=== PATIENT | male | born 2005 | race Caucasian/White ===

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

== ENCOUNTER 2024-10-15 00:25 | Day surgery (SDC) | payer BC, SELFPAY ==
--- NOTE | 2024-10-11 15:51 | PC.NURSE ---
Report to the Outpatient Waiting Room, entrance under the green pavilion located off [facility], at time _1200_ on date _[id number]_. Planned Procedure Time: _2pm_.? Time changes happen often and if your time is changed the preop area will call you the afternoon before. - You and your visitor will be asked to self-screen and do not enter if you have any COVID symptoms. Please call surgeon if you need to reschedule. - A mask is optional within the hospital at this time. Patients may have clear liquids (water, carbonated beverages, clear teas, apple juice) until 3 hours prior to surgery with a maximum of 20 ounces. - No food from midnight until time of surgery and no smoking. This includes no chewing gum, candy or mints. Take only the following medications with a SIP of water on the morning of surgery: ___Antibiotic DO NOT STOP ANY OF YOUR OTHER PRESCRIPTION MEDICATIONS PRIOR TO SURGERY EXCEPT THE FOLLOWING Medications to discontinue per physician None Date to take last dose Please no make-up, nail greek, hairspray, perfume, deodorant, or body powder the day of surgery.? No jewelry (including any body piercings) or valuables the day of surgery, leave them at home.? Please take a shower or bath the night before, or the morning of, surgery with an antibacterial soap.? Wear comfortable, loose fitting clothing.? - Jewelry must be removed prior to entering the operating room.? Rings and piercings that are not removed may be cut off. - The hospital will not accept responsibility for valuables.? - Please leave all valuables, including medications, at home the day of surgery. If you are going home after surgery, a licensed motor driver must drive you home.? - NO public transportation without another adult if you receive anesthesia. - We recommend that an adult stay with you for 24 hours following discharge. - We also recommend that you do not drive, make important decision, drink alcoholic beverages, or take any drugs that were not prescribed by your health care provider for at least 24 hours after your discharge time. Follow any additional instructions given to you from your surgeon. Telephone instructions given to __Carter___and asked if any additional questions and then verbalized understanding. Patient advised to call surgeon office or pre surgery nurse liaison [phone] if any additional questions.
[2024-10-11 15:53] VITALS: BMI 29.0
[2024-10-15] VITALS (9 sets, daily range): BP systolic 90–127; BP diastolic 38–73; PULSE 52–68; RESP 13–16; TEMP 36.2; O2SAT 99–100
--- NOTE | 2024-10-15 12:00 | P.PNAN_ITS ---
Anes - Initial Pre Proc Eval Procedure: Operation Date: 10/15/24 14:00 Proposed Procedures p Incision and Drainage Pilonidal Cyst - Giorgi Augustine MD Date/Time: 10/15/24 12:00 Surgeon: Giorgi Augustine MD Pre Op Diagnosis: pilonidal cyst Patient Data Age: 18 Gender: M Height: 1.85 m Weight: 100 kg Allergies Allergy/AdvReac Type Severity Reaction Status Date / Time No Known Allergies Allergy Verified 10/11/24 15:52 Patient hx anesthesia problems: none Family hx anesthesia problems: none Results Review: All pre-operative results and documents have been reviewed as part of the pre- operative evaluation. PMFSH Family History Family History Other Depression Social History Social History Smoking status: Never smoker Alcohol intake: current Substance use: never Current Housing: Decline to Answer Concerned About Future Housing: Decline to Answer Difficulty Paying Gas/Electric Bills: Decline to Answer Difficulty Paying for Meds: Decline to Answer Currently Unemployed: Decline to Answer Education: Decline to Answer Difficulty w/ Childcare or Family Care: Decline to Answer Anes - Eval Final PreProcedure Day of Procedure 10/15/24 12:00 Patient weight: overweight Heart: regular rate and rhythm Lungs: clear to auscultation Airway: Mallampati scale class II Neurological: alert and oriented Last oral intake: >/= 8 hours ASA classification: II Emergent: no Anesthetic plan: proceed Anesthesia type and monitoring: general ETT and standard monitoring Results Review: All pre-operative results and documents have been reviewed as part of the pre- operative evaluation. Informed Consent: The patient's anesthetic plan and its attendant risks and benefits were discussed with the patient/family/POA. Questions were solicited and answers provided to the satisfaction of the patient/family/POA.
--- NOTE | 2024-10-15 12:28 | WPDHPUPDATE1 ---
History and Physical Update Update Date/Time: 10/15/24 12:28 History and Physical has been reviewed, including an updated exam of the patient. There are NO changes in the patient's condition. Risks, benefits, and alternatives have been discussed and questions answered. Patient agrees to proceed with procedure.
[2024-10-15] MEDS: LACTATED RINGERS 1,000 ML 30 ML IV CONT ×2 (12:34→14:09)
[2024-10-15] MEDS: SCOPOLAMINE 1 MG PATCH 1 PATCH TRANSDERM (12:34)
[2024-10-15] MEDS: ceFAZolin 2 GM/D5W 50 ML 2 GM/50 ML BAG IVPB (13:03)
[2024-10-15] MEDS: BUPIVACAINE/EPINEPHRINE 0.5% 50 ML VIAL 20 ML INFILTRATE (13:32)
--- NOTE | 2024-10-15 14:11 | P.OP_ITS ---
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 It swells, drains, then heals only to repeat this process time and again. He was seen in the office and found to have a pilonidal cyst. The most recent drainage site was in the left side slightly above the gluteal crease but there were clefts lower and in the midline below the coccyx. He is taken to surgery now for incision and drainage of this complex pilonidal cyst. Findings The existing opening tract both cephalad but mostly caudad to the midline. It did not communicate with the deepest of the intergluteal cleft. On opening tract there was large amount of chronic inflammatory tissue and hair present. A well-defined tract was noted. The predominant portion of the recent infection was near the upper aspect of the pilonidal cyst. Once opened the dimensions of the wound were 7 x 2.7 x 1.8 cm. Description of Procedure Patient was taken to surgery and induced into general anesthesia. He was then turned and placed in prone position. The area in the gluteal crease and sacrum was then shaved with clippers. Loose hair fibers were removed. The buttocks were taped apart. Prep and drape was carried out. Initially I probed the fluctuant opening on the upper left. Purulent fluid was in this. I then used a probe and found that it tracked more cephalad and to the patient's right about another 2 cm. It tracked much further caudad and towards the midline. I infiltrated local into the skin and all around the anticipated area of the pilonidal cyst. I then opened the more cephalad extension down to the wound tract. Similarly, I opened the wound tracked caudally ending in the midline. Surprisingly, the cleft between the buttocks did not communicate with the pilonidal sinus tract. There was considerable hair and chronic granulation and inflammatory tissue in the pilonidal cyst. Some of this was wiped away. Some was curetted away and some had to be debrided. Cautery was used for hemostasis, there was very little bleeding. Once the pilonidal cyst was opened adequately that it would drain well, we placed Xeroform gauze in the base of the wound. Fluffs were placed over the Xeroform and then over the wound. Bulky fluffs and couple of ABDs were placed over the wound. The dressing was held in place with Medipore tape. The patient was then returned to a supine position. He was awakened and extubated. He was transferred to recovery in good condition. Estimated Blood Loss -5 Drains No Packing Yes (Xeroform gauze) Pathology None sent Complications None Condition Stable Disposition PACU [facility] Billing Surgery - Charge Forward: Surgery Billing (Incision and drainage complex pilonidal cyst)
== END 2024-10-15 15:24 | disposition home or self-care (01) ==
PROVIDERS: PCP Family Medicine; Visit Provider Surgery
PROC: (CPT 10081; principal; 2024-10-15 14:00)
DX: L05.91 Pilonidal cyst without abscess (principal); G89.18 Other acute postprocedural pain
CPT/HCPCS: 10081; A9270; J0690; J1100; J2250; J2405; J2704; J3010; J7120; Q9968

== ENCOUNTER 2025-06-13 10:59 | Day surgery (SDC) | payer BC, SELFPAY ==
[2025-06-13] VITALS (7 sets, daily range): BP systolic 105–141; BP diastolic 37–83; PULSE 54–70; RESP 12–16; TEMP 36.3–36.5; O2SAT 99–100; BMI 25.2
--- OUTSIDE RECORDS SUMMARY | 2025-06-13 11:36 | XMS_ITS | Clinical Summary ---
Author Organization [facility] [employer] Address [address] [place] [address] Care Team Providers Care Apartment Leasing Agent Name Role Phone Madeline Nolan Primary Care Provider [phone] Source Comments [facility],non-owned Affiliates and Associated Physician Practices is amultiple site organization consisting of ambulatory clinics and hospital sitesin [place], [place], [place] and [place]. This disclosure is being madepursuant to the Care Everywhere program and may not contain all information available regarding this patient. Last updated 18.[facility] Social History Tobacco Use Types Packs/Day Years Used Date Smoking Tobacco: Never Assessed Sex and Gender Information Value Date Recorded Sex Assigned at Not on file Legal Sex Male 1:02 PM CDT Gender Identity Not on file Sexual Orientation Not on file Plan of Treatment Health Maintenance Due Date Last Done Comments HIV SCREENING 2019 HPV VACCINE (1 - Male 3-dose series) 2019 MENINGOCOCCAL (Group B) VACC INE SHARED DECISION-MAKING (1 of 2 - Standard) 2020 HEPATITIS C SCREENING 10/23/2022 DTAP/TDAP/TD VACCINES (1 - Tdap) 2023 HEPATITIS B VACCINE (1 of 3 - 19+ 3-dose series) 2023 DEPRESSION SCREENING 10/10/2024 COVID-19 VACCINE (1 - 2023-2 5 season) 2025 INFLUENZA VACCINE (#1) 2025 ZOSTER VACCINE (1 of 2) 2054 HIB VACCINE Aged Out No longer eligi ble based on patient's age to complete this topic MENINGOCOCCAL GROUPS A/C/Y/W VACCINE Aged Out No longer eligible b ased on patient's age to complete this topic PNEUMOCOCCAL VACCINE Aged Out No long er eligible based on patient's age to complete this topic Care Teams Apartment Leasing Agent Relationship Specialty Start Date End Date Madeline Nolan DO PCP - General Family Medicine 11/28/13
--- OUTSIDE RECORDS SUMMARY | 2025-06-13 11:36 | XMS_ITS | Clinical Summary ---
Author Organization [facility] Address [address] [place] [address] Phone Care Team Providers Care Machine Setter And Repairer Name Role Phone Unavailable Primary Care Provider Unavailabl e Social History Tobacco Use Types Packs/Day Years Used Date Smoking Tobacco: Never Assessed Sex and Gender Information Value Date Recorded Sex Assigned at Not on file Legal Sex Male 8:54 AM CDT Gender Identity Not on file Sexual Orientation Not on file Plan of Treatment Not on file
--- OUTSIDE RECORDS SUMMARY | 2025-06-13 11:36 | XMS_ITS | Encounter Summary ---
Author Organization [facility] Address [address] [place] [address] Phone Care Team Providers Care Calculating Machine Operator Name Role Phone Unavailable Primary Care Provider Unavailabl e Encounter Details Date Type Department Care Team (Late st Contact Info) Description 02/21/2025 Lab Requisition [facility] [address] [place] [address] Megan Goodwin, WEB DESIGN INSTRUCTOR, BOX SEALING INSPECTOR [address] [place] [address] Social History Tobacco Use Types Packs/Day Years Used Date Smoking Tobacco: Never Assessed Sex and Gender Information Value Date Recorded Sex Assigned at Not on file Legal Sex Male 8:54 AM CDT Gender Identity Not on file Sexual Orientation Not on file documented as of this encounter Plan of Treatment Not on file documented as of this encounter Procedures Procedure Name Priority Date/Time Associated Diagnosis Comments QUANTIFERON-TB GOLD PLUS Routine 02/21/2025 8:53 AM CDT documented in this encounter Results * QUANTIFERON-TB GOLD PLUS (02/21/2025 8:53 AM CDT) NIL CONTROL 0.01 <8.01 IU/mL 02/24/2025 1:55 PM CDT [facility] TB ANTIGEN 1 0.02 <0.35 IU/mL 02/24/2025 1:55 PM CDT [facility] TB ANTIGEN 2 0.04 <0.35 IU/mL 02/24/2025 1:55 PM CDT [facility] MITOGEN CONTROL 9.99 >0.49 IU/mL 02/25/20 1:55 PM CDT [facility] INTEPRETATION TB NEGATIVE NEGATIVE, NEGATIVE (TB antigen response less than 25% of internal negative control value) 02/24/2025 1:55 PM CDT [facility] Comment:No immune response t o Mycobacterium tuberculosis antigens was noted. M. tuberculosis infection unlikely. Blood No Phlebotomy Charged / Unknown 02/21/2025 8:53 AM CDT 02/21/2025 8:47 PM CDT Narrative [facility] - 02/24/2025 1:55 PM CDT A POSITIVE QUANTIFERON-TB GOLD PLUS RESULT SHOULD NOT BE THE SOLE OR DEFINITIVE BASIS FOR DETERMINING INFECTION WITH M.TUBERCULOSIS. Diagnosing or excluding tuberculosis disease, and assessing the probability of LTBI, requires a combination of epidemiological, historical, medical and diagnostic findings (e.g., acid fast bacilli (AFB) smear and culture, chest xray) that should be taken into account when interpreting QFT-Plus results. Furthermore, the magnitude of the measured gamma interferon level cannot be correlated to stage or degree of infection, level of immune responsiveness, or likelihood for progression to active disease. The Nil control adjusts for background (e.g., elevated levels of circulating gamma interferon or presence of heterophile antibodies). The Mitogen control serves as an internal positive control and verifies each specimen tested can produce a gamma interferon response. Low mitogen may occur with insufficient lymphocytes, reduced lymphocyte activity due to improper specimen handling, filling/mixing of the mitogen tube, or inability of the patient's lymphocytes to generate gamma interferon. Infection with other Mycobacteria, including M. kansasii, M. szulgai, and M. marinum, may cause false positive results. A negative QuantiFERON-TB Gold Plus result does not preclude the possibility of M. tuberculosis infection or tuberculosis disease: false negative results can be due to incorrect blood sample collection/ improper handling of the specimen, stage of infection (e.g., specimen obtained prior to the development of cellular immune response), co-morbid conditions which affect immune function, or other individual immunological factors. The minimum number of lymphocytes required for a reliable test has not been established and may also be variable. Diagnostic testing for Mycobacterium tuberculosis using Interferon Gamma Release Assays should follow applicable published guidelines, including when testing in populations such as children, women, and HIV-infected or otherwise immunocompromised individuals. https://www.cdc.gov/tb/publications/guidelines/testing.htm us Megan Goodwin WEB DESIGN INSTRUCTOR, BOX SEALING INSPECTOR IMMUNOLOGY ORDERABLES F inal Result [facility] [address] [place] [address], [place] documented in this encounter Visit Diagnoses Not on filedocumented in this encounter
--- OUTSIDE RECORDS SUMMARY | 2025-06-13 11:36 | XMS_ITS | Clinical Summary ---
Author Organization [facility] Address [address] [place] [address] Care Team Providers Care Washer And Crusher Tender Name Role Phone Ruth Ma MD Primary Care Provider Social History Tobacco Use Types Packs/Day Years Used Date Smoking Tobacco: Never Assessed Sex and Gender Information Value Date Recorded Sex Assigned at Not on file Legal Sex Male 4:14 PM CDT Gender Identity Not on file Sexual Orientation Not on file Last Filed Vital Signs Vital Sign Reading Time Taken Comments Blood Pressure 102/60 02/07/2015 3:05 PM CDT Pulse 82 02/07/2015 3:05 PM CDT Temperature - - Respiratory Rate - - Oxygen Saturation - - Inhaled Oxygen Concentration - - Weight 48.3 kg (106 lb 8 oz) 02/07/2015 3:05 PM CDT Height 154.9 cm (5' 1) 02/07/2015 3:05 PM CDT Body Mass Index 20.12 02/07/2015 3:05 PM CDT Plan of Treatment Health Maintenance Due Date Last Done Comments Annual Physical 2007 Meningococcal B Vaccine (1 of 2 - Standard) 2020 Hepatitis C 2022 COVID-19 Vaccine ( - season) 2024 08/15/2021, 07/16/2021 DTaP, Tdap and Td Vaccines (7 - Td or Tdap) 05/03/2026 05/03/2016, 04/21/2010, 04/21/2010, Additional history exists Hepatitis B Vaccines Completed 05/04/2005, 05/04/2005, 03/02/2005, Additional history exists Pneumococcal Vaccine: Pediatrics (0 to 5 Years) and At-Risk Patients (6 to 49 Years) Aged Out 10/28/2005, 05/04/2005, 03/02/2005, Additional history exists No longer eligible based on patient's age to complete this topic HPV Vaccines Completed 03/13/2020, 03/29/2019 Meningococcal Vaccine Completed 05/24/2022, 016 RSV Immunizations Under 20 Months Aged Out No longer eligible based on patient's age to complete this topic Insurance Care Teams Washer And Crusher Tender Relationship Specialty Start Date End Date Ruth Ma MD [address] [place] [address] PCP - General FAMILY PRACTICE 12/03/22
--- NOTE | 2025-06-13 12:46 | WPDHPUPDATE1 ---
History and Physical Update Update Date/Time: 06/13/25 12:46 History and Physical has been reviewed, including an updated exam of the patient. There are NO changes in the patient's condition. Risks, benefits, and alternatives have been discussed and questions answered. Patient agrees to proceed with procedure.
--- NOTE | 2025-06-13 14:30 | P.PNAN_ITS ---
Anes - Initial Pre Proc Eval Procedure: Operation Date: 06/13/25 14:00 Proposed Procedures p Incision and Drainage Complicated Pilonidal Cyst - Giorgi Augustine MD Date/Time: 06/13/25 14:30 Surgeon: Giorgi Augustine MD Pre Op Diagnosis: pilonidal cyst Patient Data Age: 19 Gender: M Height: 1.85 m Weight: 86.64 kg Last Vital Signs Temp 36.5 C 06/13/25 13:30 Pulse 54 L 06/13/25 13:30 Resp 16 06/13/25 13:30 BP 120/61 06/13/25 13:30 Pulse Ox 100 06/13/25 13:30 O2 Del Method Room Air 06/13/25 13:30 Allergies Allergy/AdvReac Type Severity Reaction Status Date / Time No Known Allergies Allergy Verified 06/13/25 13:36 Home Medications ?Medication ?Instructions ?Recorded ?Confirmed ?Type No Home Medications 11/01/24 06/13/25 H istory Patient hx anesthesia problems: none Family hx anesthesia problems: none Results Review: All pre-operative results and documents have been reviewed as part of the pre-operative evaluation. [facility] Surgical History Surgical History History of excision of pilonidal cyst 10/15/24 Incision and drainage complex pilonidal cyst Dr. Augustine Family History Family History Other Depression Social History Social History Smoking status: Never smoker Alcohol intake: current Substance use: never Current Housing: Decline to Answer Concerned About Future Housing: Decline to Answer Difficulty Paying Gas/Electric Bills: Decline to Answer Difficulty Paying for Meds: Decline to Answer Currently Unemployed: Decline to Answer Education: Decline to Answer Difficulty w/ Childcare or Family Care: Decline to Answer Living arrangements: alone Spiritual care concerns: No Anes - Eval Final PreProcedure Day of Procedure 06/13/25 14:30 Patient weight: overweight Heart: regular rate and rhythm Lungs: clear to auscultation Airway: Mallampati scale class II Neurological: alert and oriented Last oral intake: >/= 8 hours ASA classification: II Emergent: no Anesthetic plan: proceed Anesthesia type and monitoring: general ETT and standard monitoring Results Review: All pre-operative results and documents have been reviewed as part of the pre- operative evaluation. Informed Consent: The patient's anesthetic plan and its attendant risks and benefits were discussed with the patient/family/POA. Questions were solicited and answers provided to the satisfaction of the patient/family/POA.
[2025-06-13] MEDS: ceFAZolin 2 GM in SODIUM CHLORIDE 0.9% IV 50 ML 100 ML IVPB (14:33)
--- NOTE | 2025-06-13 15:21 | P.OP_ITS ---
Procedure Note - Detailed Date of Procedure 06/13/25 Pre-op Diagnosis Recurrent complicated pilonidal cyst Post-op Diagnosis Same Procedure Performed Incision and drainage complicated pilonidal cyst Surgeon Giorgi Augustine MD [employer] [place] [employer] Anesthesia General and Local Indications Patient had incision and drainage of a pilonidal cyst in October. He attends school at the [employer] in [facility]. He was not able to follow- up due to being in school. The wound went on to heal but about a month ago he started noticing discomfort in the same area. Then there was drainage from the area. He was seen in the office this morning and found to have a recurrent pilonidal cyst. He is taken to surgery now for incision and drainage. Findings The pilonidal cyst sinus tract extended the entire length of the previous scar as well as farther caudad to include some clefts. Multiple hair fibers, granulation tissue, and pockets were noted and removed. Description of Procedure Patient was taken to the operating room and induced into general anesthesia. He was then turned to prone position on the operating table. The upper buttocks and sacrococcygeal area were shaved, prepped and draped. I started by passing a fine tip clamp into the open area on the bottom left of the scar. This really did not go very far but a few hairs were removed. I also removed hair from a couple of clefts that were further caudad, towards the rectum. I infiltrated local over the scar and into the deeper subcutaneous tissue around the open area and further cephalad and caudad to this open area. I then opened the draining area more cephalad and found a deeper sinus tract. This had several hairs in it which were removed. It also tracked cephalad nearly the entire length of the old scar. I opened the skin and subcutaneous over the sinus tract so the tract was fully exposed. More hair was seen and removed there was granulation tissue in the subcutaneous which was removed. There were some pockets found which were opened and debrided. Further caudad, towards the rectum, there was extension of the sinus tract. The skin was also opened and the tract was thoroughly exposed. Additional subcutaneous pockets and areas of granulation tissue and hair were discovered. These were removed as well. The wound now had a clean appearance with no pockets, no residual hair, and no granulation tissue. I infiltrated local anesthetic again throughout the entire area. Cautery was used for hemostasis. The wound was packed with 1 in iodoform Nu gauze. Fluff dressing was placed over the wound. Medipore tape was used. Patient was then returned to a supine position, awakened, and extubated. He transferred to recovery in good condition. Estimated Blood Loss -2 Drains No Packing Yes (1 in iodoform Nu Gauze) Pathology None sent Complications None Condition Stable Disposition PACU [facility] Billing Surgery - Charge Forward: Surgery Billing (Incision and drainage complicated recurrent pilonidal cyst)
[2025-06-13] MEDS: LACTATED RINGERS 1,000 ML 30 ML IV CONT (15:26)
== END 2025-06-13 16:36 | disposition home or self-care (01) ==
PROVIDERS: PCP Family Medicine; Visit Provider Surgery
PROC: (CPT 10081; principal; 2025-06-13 14:00)
DX: L05.91 Pilonidal cyst without abscess (principal)
CPT/HCPCS: 10081; J0690; A9270; J1100; J2003; J2250; J2405; J2704; J3010; J7120; Q9968